=== PATIENT | female | born 1950 | race Caucasian/White ===

== ENCOUNTER → 2016-12-30 | Outpatient (CLI) | payer OTHER ==
--- NOTE | 2016-12-30 16:32 | DI ---
HISTORY: Left wrist pain. FINDINGS: Examination reveals mild soft tissue swelling and mild degenerative arthritic changes. Th ere is no evidence of recent fracture or dislocation. IMPRESSION: 1. Mild soft tissue swelling without acute fracture.
[2016-12-30 16:42] LABS: BASOPHILS # (AUTO) 0.04 10*3/UL; BASOPHILS % (AUTO) 0.8 % (0-1); EOSINOPHILS # (AUTO) 0.08 10*3/UL; EOSINOPHILS % (AUTO) 1.5 % (0-8); HEMATOCRIT 41.4 % (37.0-47.0); HEMOGLOBIN 13.5 g/dL (12.0-16.0); LYMPHOCYTES # (AUTO) 2.25 10*3/uL; MEAN CORPUSCULAR HEMOGLOBIN 31.2 PG (27-31); MEAN CORPUSCULAR HGB CONC 32.6 g/dL (33-37); MEAN CORPUSCULAR VOLUME 95.6 FL (81-99); MEAN PLATELET VOLUME 8.3 FL (7.4-12.2); MONOCYTES # (AUTO) 0.55 10*3/UL (0.3-0.8); MONOCYTES % (AUTO) 10.3 % (5-15); NEUTROPHILS # (AUTO) 2.41 10*3/UL; NEUTROPHILS % (AUTO) 45.2 % (50-80); RED BLOOD COUNT 4.33 10^6/uL (4.20-5.40)
[2016-12-30 16:43] LABS: PLATELET MORPHOLOGY COMMENT NORMAL MORPHOLOGY (NORM); RBC MORPHOLOGY COMMENT NORMAL MORPHOLOGY (NORM); WBC MORPHOLOGY COMMENT NORMAL MORPHOLOGY (NORM)
[2016-12-30 16:54] LABS: BLOOD UREA NITROGEN 23 mg/dL (7-22); BUN/CREATININE RATIO 28.75 (6-20); CALCIUM 8.7 mg/dL (8.7-10.7); EST GLOMERULAR FILTRATION > 60 (>60 ml/min/1.73m(2)); HDL CHOLESTEROL 64 mg/dL (40-150); PHOSPHORUS 3.5 mg/dl (2.4-4.3); SERUM ALBUMIN 3.8 g/dL (3.5-4.8); SERUM CHOLESTEROL 186 mg/dL (120-200)
[2016-12-30 17:17] LABS: VITAMIN D 25-HYDROXY 51.7 NG/ML (30-100)
== END ==
LOC: MOB RAD 15:47
DX: M25.532 Pain in left wrist (principal); W22.8XXA Striking against or struck by other objects, initial encounter; J45.909 Unspecified asthma, uncomplicated; M81.0 Age-related osteoporosis without current pathological fracture; E78.00 Pure hypercholesterolemia, unspecified
CPT/HCPCS: 36415; 73110; 80053; 80061; 82306; 84100; 84443; 85025; 99213

== ENCOUNTER → 2017-01-20 | Outpatient (CLI) | payer OTHER | LOC: MMPC 11:11 | DX: M81.0 Age-related osteoporosis without current pathological fracture (principal) | CPT/HCPCS: G0463; J0897 ==